=== PATIENT | female | born 1955 | race Caucasian/White ===

== ENCOUNTER 2016-06-04 00:01 | Outpatient (POV) | END 2016-06-04 00:02 | LOC: OUTPT 00:01 | PROVIDERS: ATTEND Otolaryngology | DX: H91.90 Unspecified hearing loss, unspecified ear (principal) | CPT/HCPCS: 92557; 92567 ==

== ENCOUNTER 2017-05-15 10:20 | Outpatient (RCR) | END 2017-05-30 | LOC: NEWBEG 10:20 | PROVIDERS: ATTEND Psychiatry & Neurology Psychiatry | DX: X50.1XXA Overexertion from prolonged static or awkward postures, initial encounter (principal) ==